=== PATIENT | female | born 1990 | race Caucasian/White ===

== ENCOUNTER 2019-01-31 10:34 | Emergency (ER) | payer OTHER, SELFPAY ==
--- NOTE | 2019-01-31 11:24 | RAD ---
LEFT ELBOW 4 VIEWS: Date: 01/31/19 HISTORY: Injury to elbow. FINDINGS: There are no signs of fracture, dislocation, or joint effusion. IMPRESSION: Negative left elbow. POS: [facility]
--- NOTE | 2019-01-31 11:25 | RAD ---
LEFT FOREARM TWO VIEWS: History: Injury to forearm. FINDINGS: There are no signs of fracture or dislocation. IMPRESSION: Negative left forearm. POS: [facility]
== END 2019-01-31 11:38 | disposition home or self-care (01) ==
LOC: NAV ERS 10:34
DX: S53.402A Unspecified sprain of left elbow, initial encounter (principal); J45.909 Unspecified asthma, uncomplicated; X50.9XXA Other and unspecified overexertion or strenuous movements or postures, initial encounter